=== PATIENT | male | born 1990 | race Caucasian/White ===

== ENCOUNTER 2023-09-24 21:56 | Emergency (ER) | payer SELFPAY ==
[2023-09-24 22:05] VITALS: BP 127/88; PULSE 82; RESP 19; TEMP 98.6; BMI 25.8
[2023-09-24] MEDS ORDERED: IBUPROFEN 600 MG TABLET (FP) PO ONE (23:08)
[2023-09-24] MEDS ORDERED: LIDOCAINE 2.5%/PRILOCAINE 2.5% (5 Gram/TUBE) TP ONE (23:08)
[2023-09-24] MEDS: IBUPROFEN 600 MG TABLET (FP) PO ONE (23:09)
[2023-09-24] MEDS: LIDOCAINE 2.5%/PRILOCAINE 2.5% (5 Gram/TUBE) TP ONE (23:09)
[2023-09-24] MEDS: CIPROFLOXACIN 500 MG TABLET (RESTRICTED TO ID) PO ONE (23:58)
== END 2023-09-25 | disposition home or self-care (01) ==
LOC: JER 21:56
DX: H61.001 Unspecified perichondritis of right external ear (principal); H61.121 Hematoma of pinna, right ear
CPT/HCPCS: 99283-25